=== PATIENT | female | born 1980 | race Caucasian/White ===

== ENCOUNTER 2022-01-17 03:38 | Day surgery (SDC) | payer OTHER ==
[2022-01-17 04:05] VITALS: BMI 34.0
[2022-01-17] MEDS ORDERED: hydrALAZINE 20 MG/ML VIAL SLOW IVP PRN (04:49)
[2022-01-17 05:02] LABS: Fetal Membranes Rupture No Membranes Rupture (No Rupture)
== END 2022-01-17 05:10 | disposition home or self-care (01) ==
LOC: CSHLD/OP 03:38
PROVIDERS: ATTEND Obstetrics & Gynecology
DX: O99.891 Other specified diseases and conditions complicating pregnancy (principal); N89.8 Other specified noninflammatory disorders of vagina; O09.523 Supervision of elderly multigravida, third trimester; Z3A.37 37 weeks gestation of pregnancy; Z79.82 Long term (current) use of aspirin; Z79.899 Other long term (current) drug therapy
CPT/HCPCS: 84112; 87252

== ENCOUNTER 2022-01-26 06:10 | Observation (INO) | payer OTHER ==
[2022-01-26 06:50] LABS: #Eosinphils 0.2 10x3/uL (0.0-0.5); #Monocytes 0.5 10x3/uL (0.0-1.1); #Neutrophils 7.3 10x3/uL (1.5-8.4); %Basophils 0.4 % (0.0-2.0); %Eosinophils 2.4 % (0.0-6.0); %Lymphocytes 14.7 % (18.0-47.0); %Monocytes 5.1 % (0.0-10.0); Hemoglobin 11.4 g/dL (12.0-15.5); Mean Corpuscular HGB CONC 34.3 g/dL (32.0-36.0); Mean Corpuscular Hemoglobin 30.4 pg (27.0-33.0); Mean Corpuscular Volume 88.5 fl (81.6-98.3); Mean Platelet Volume 10.4 fl (7.4-10.4); Platelet Count 393 10x3/uL (150-450); RBC Distribution Width 14.6 % (11.5-14.5); Red Blood Cell (RBC) Count 3.75 10x6/uL (3.90-5.03); White Blood Cell (WBC) Count 9.4 10x3/uL (3.5-10.5)
[2022-01-26] MEDS ORDERED: hydrALAZINE 20 MG/ML VIAL ONE ×2 (07:10→08:41)
[2022-01-26 07:12] LABS: Bilirubin Neg (Negative); Blood, Urine 250 (Negative); Clarity Clear (Clear); Glucose, Urine (Dipstick) Normal (Negative); Ketone, Urine Negative (Negative); Leukocyte 25 (Negative); Nitrite Negative (Negative); Protein, Urine (Dipstick) 15 mg/dl (Neg-Trace); Urobilinogen Normal mg/dL (Less than 2)
[2022-01-26 07:19] LABS: Bacteria/HPF None Seen HPF (None Seen); Squamous Epithelial 0-3 HPF (0-3); WBC/HPF 0-3 HPF (0-3)
[2022-01-26] MEDS ORDERED: Labetalol HCl 100 MG/20 ML VIAL SLOW IVP PRN (08:25)
[2022-01-26] MEDS ORDERED: Promethazine HCl 25 MG/ML VIAL IM PRN (08:25)
[2022-01-26] MEDS ORDERED: Calcium Gluc 4.6 MEQ/10 ML (100 MG/ML) SLOW IVP PRN (08:25)
[2022-01-26] MEDS ORDERED: Lorazepam 2 MG/ML VIAL SLOW IVP PRN (08:25)
[2022-01-26] MEDS ORDERED: hydrALAZINE 20 MG/ML VIAL SLOW IVP PRN (08:25)
[2022-01-26] MEDS ORDERED: Ondansetron PF 4 MG/2 ML Vial IVP PRN (08:25)
[2022-01-26] MEDS: hydrALAZINE 20 MG/ML VIAL SLOW IVP PRN (08:43)
[2022-01-26] MEDS: Magnesium Sulfate 20 gm/500 ml 20 GM/500 ML BAG IVPB SCH ×2 (09:02→18:28)
[2022-01-26 09:50] LABS: ALT (SGPT) 157 U/L (8-55); AST (SGOT) 118 U/L (5-34); Albumin 3.5 g/dL (3.5-5.0); Alkaline Phosphatase 137 U/L (40-110); Anion Gap 15 mmol/L (10-20); BUN (Urea Nitrogen) 14 mg/dL (7.0-18.7); Bilirubin, Total 0.3 mg/dL (0.2-1.2); Calc. Creatinine Clearance 0 mL/min (70-130); Calcium 9.3 mg/dL (7.8-10.44); Carbon Dioxide 22 mmol/L (22-29); Chloride 105 mmol/L (98-107); Globulin 2.9 g/dL (2.4-3.5); Glucose 119 mg/dL (70-105); Potassium 4.1 mmol/L (3.5-5.1); Protein, Total 6.4 g/dL (6.0-8.3); Sodium 138 mmol/L (136-145)
[2022-01-26] MEDS: Losartan Potassium 50 MG TAB PO SCH (10:51)
[2022-01-26] MEDS: Labetalol HCl 200 MG TAB PO SCH ×2 (15:35→22:12)
[2022-01-26] MEDS: Acetaminophen 500 MG TAB PO PRN (17:16)
[2022-01-27] MEDS: Acetaminophen 500 MG TAB PO PRN ×2 (02:27→09:22)
[2022-01-27] MEDS: Labetalol HCl 200 MG TAB PO SCH ×3 (06:09→21:51)
[2022-01-27] MEDS: Losartan Potassium 50 MG TAB PO SCH (09:22)
[2022-01-27] MEDS ORDERED: Losartan Potassium 50 MG TAB PO SCH (12:30)
[2022-01-27] MEDS: Ibuprofen 800 MG TAB PO SCH ×2 (12:34→21:52)
[2022-01-28] MEDS: Ibuprofen 800 MG TAB PO SCH ×3 (05:18→20:26)
[2022-01-28] MEDS: Labetalol HCl 200 MG TAB PO SCH ×3 (05:19→21:34)
[2022-01-28] MEDS: hydrALAZINE 20 MG/ML VIAL SLOW IVP PRN ×2 (05:38→16:10)
[2022-01-28] MEDS: Losartan Potassium 50 MG TAB PO SCH (08:27)
[2022-01-28] MEDS ORDERED: HYDROcodone/Acetaminophen 5/325 mg Tablet PO PRN (17:39)
[2022-01-28] MEDS ORDERED: NIFEdipine XL 30 MG TAB PO SCH (21:00)
[2022-01-29] MEDS: Ibuprofen 800 MG TAB PO SCH ×2 (05:24→13:35)
[2022-01-29] MEDS: Labetalol HCl 200 MG TAB PO SCH ×2 (05:24→13:33)
[2022-01-29] MEDS: Losartan Potassium 50 MG TAB PO SCH (08:43)
[2022-01-29 12:30] VITALS: BP 132/67; TEMP 98.6
== END 2022-01-29 18:00 | disposition home or self-care (01) ==
LOC: CSHERS 06:10 → CSHLD 08:41 → INTOOBSV 08:41 → CSHANTE 21:40
PROVIDERS: ADMIT Family Medicine; ATTEND Family Medicine
DX: O14.95 Unspecified pre-eclampsia, complicating the puerperium (principal); Z79.82 Long term (current) use of aspirin; Z79.899 Other long term (current) drug therapy
CPT/HCPCS: 36415; 80053; 81003; 81015; 83880; 85025; 96374; 96375; 96376; G0378; J0360; J3475